=== PATIENT | female | born 1980 | race African-American/Black ===

== ENCOUNTER 2021-08-22 02:51 | Emergency (ER) | payer SELFPAY ==
[~2021-08-22] VITALS: Ht 167.6 cm; Wt 100.0 kg
[2021-08-22] MEDS ORDERED: IBUPROFEN 600MG TABLET PO ONE (03:45)
[2021-08-22 06:03] VITALS: BP 125/95
== END 2021-08-22 06:14 | disposition home or self-care (01) ==
LOC: ER 02:51
DX: R51.9 Headache, unspecified (principal); B34.9 Viral infection, unspecified; E03.9 Hypothyroidism, unspecified
CPT/HCPCS: 71045; 99283